=== PATIENT | male | born 1960 | race African-American/Black ===

== ENCOUNTER 2022-10-15 19:26 | Observation (INO) | payer OTHER ==
[~2022-10-15 19:26] MED LIST: Iopamidol-370 76% 500 ML 1 ML ONE
[2022-10-15] MEDS ORDERED: Morphine 4 MG/ML VIAL ONE ×2 (20:02→21:30)
[2022-10-15] MEDS ORDERED: Ondansetron PF 4 MG/2 ML Vial ONE (20:02)
[2022-10-15 20:22] LABS: INR-International Normal Ratio 1.1; Prothrombin Time 14.8 sec (12.0-14.7)
[2022-10-15 20:41] LABS: Lipase 55 U/L (8-78); Magnesium 1.9 mg/dL (1.6-2.6)
[2022-10-16 00:22] LABS: ALT (SGPT) 16 U/L (8-55); AST (SGOT) 20 U/L (5-34); Albumin 3.8 g/dL (3.5-5.0); Alkaline Phosphatase 160 U/L (40-110); Anion Gap 17 mmol/L (10-20); BUN (Urea Nitrogen) 12 mg/dL (8.4-25.7); Bilirubin, Total 0.2 mg/dL (0.2-1.2); Calc. Creatinine Clearance 0 mL/min (70-130); Calcium 9.5 mg/dL (7.8-10.44); Carbon Dioxide 23 mmol/L (22-29); Chloride 104 mmol/L (98-107); Estimated GFR 98; Globulin 3.8 g/dL (2.4-3.5); Glucose 79 mg/dL (70-105); Potassium 3.7 mmol/L (3.5-5.1); Protein, Total 7.6 g/dL (6.0-8.3); Sodium 140 mmol/L (136-145)
[2022-10-16] MEDS ORDERED: Senokot S 8.6-50 MG TAB PO PRN (00:36)
[2022-10-16] MEDS ORDERED: Ondansetron ODT 4 MG TAB PO PRN (00:36)
[2022-10-16] MEDS ORDERED: Calcium Carbonate 500 MG ChewTAB PO PRN (00:36)
[2022-10-16] MEDS ORDERED: oxyCODONE 5 MG TAB PO PRN (00:38)
[2022-10-16] MEDS ORDERED: Ibuprofen 600 MG TAB PO PRN (00:39)
[2022-10-16] MEDS ORDERED: Acetaminophen 325 MG TAB PO PRN (00:39)
[2022-10-16 00:57] VITALS: BMI 33.2
[2022-10-16 02:16] LABS: #Basophils 0.1 thou/uL (0.0-0.2); #Eosinphils 0.2 thou/uL (0.0-0.7); #Lymphocytes 0.6 thou/uL (1.20-3.40); #Monocytes 0.5 thou/uL (0.11-0.59); #Neutrophils 2.7 thou/uL (1.40-6.50); %Basophils 1.5 % (0.0-1.0); %Eosinophils 4.8 % (0.0-10.0); %Lymphocytes 14.5 % (21.0-51.0); %Monocytes 11.9 % (0.0-10.0); %Neutrophils 67.2 % (42.0-75.0); Hemoglobin 9.5 g/dL (14.0-18.0); Mean Corpuscular HGB CONC 33.4 g/dL (32.0-36.0); Mean Corpuscular Hemoglobin 28.8 pg (27.0-31.0); Mean Corpuscular Volume 86.4 fl (78.0-98.0); Mean Platelet Volume 6.9 fL (7.4-10.4); Platelet Count 404 10x3/uL (130-400); RBC Distribution Width 15.6 % (11.5-14.5); Red Blood Cell (RBC) Count 3.29 mill/uL (4.70-6.10)
[2022-10-16 02:42] LABS: Troponin I 0.032 ng/mL (< 0.028)
[2022-10-16 02:48] VITALS: TEMP 99.4
[2022-10-16 05:36] LABS: SARS-CoV-2 NAA Rapid Test Not Detected (NotDetected)
[2022-10-16] MEDS ORDERED: Famotidine 20 MG TAB PO SCH (09:00)
[2022-10-16] MEDS ORDERED: Lisinopril 2.5 MG TAB PO SCH (09:00)
[2022-10-16] MEDS ORDERED: Morphine 4 MG/ML VIAL SLOW IVP SCH (10:00)
[2022-10-16] MEDS ORDERED: Famotidine 20 MG TAB ONE (10:01)
[2022-10-16 10:10] VITALS: BP 125/46
[2022-10-16] MEDS ORDERED: Morphine 4 MG/ML VIAL ONE (10:50)
[2022-10-16] MEDS ORDERED: Atorvastatin Calcium 20 MG TAB PO SCH (21:00)
== END 2022-10-16 13:05 ==
LOC: ERS 19:26 → ERHOLD 10-16 00:36
PROVIDERS: ADMIT Student in an Organized Health Care Education/Training Program; ATTEND Nurse Practitioner Family
DX: R07.89 Other chest pain (principal); C61 Malignant neoplasm of prostate; C79.51 Secondary malignant neoplasm of bone; I13.0 Hypertensive heart and chronic kidney disease with heart failure and stage 1 through stage 4 chronic kidney disease, or unspecified chronic kidney disease; N18.9 Chronic kidney disease, unspecified; I50.23 Acute on chronic systolic (congestive) heart failure; E78.2 Mixed hyperlipidemia; I42.8 Other cardiomyopathies; E03.9 Hypothyroidism, unspecified; I25.2 Old myocardial infarction; Z51.5 Encounter for palliative care; Z66 Do not resuscitate; Z86.73 Personal history of transient ischemic attack (TIA), and cerebral infarction without residual deficits; Z79.82 Long term (current) use of aspirin; Z79.899 Other long term (current) drug therapy; Z88.0 Allergy status to penicillin; Z95.5 Presence of coronary angioplasty implant and graft; Z20.822 Contact with and (suspected) exposure to COVID-19
CPT/HCPCS: 70450; 71045; 71275; 80053; 82962; 83690; 83735; 83880; 84484 ×3; 85025; 85610; 85730; 93005; 96372; 96374; G0378; U0002; 36415; 36416; 96375; 96376; J1650; J2270; J2405; Q9967